=== PATIENT | female | born 1985 | race Asian ===

== ENCOUNTER → 2017-01-17 | Outpatient (CLI) | payer OTHER ==
[2017-01-17 09:26] LABS: IRON 114 ug/dL (50-170); TOTAL IRON BINDING CAPACITY 338 ug/dL (250-450)
[2017-01-17 09:34] LABS: BASOPHIL % 0.8 % (0-2); PLATELET COUNT 174 x10^3mcL (130-400); RED CELL DISTRIBUTION WIDTH 14.9 % (11.5-14.5)
[2017-01-17 09:36] LABS: T3 TOTAL 0.94 ng/mL
[2017-01-17 09:38] LABS: ALBUMIN 3.7 g/dL (3.4-5.0); ALKALINE PHOSPHATASE 31 U/L (46-116); ALT/SGPT 18 U/L (14-59); AST/SGOT 20 U/L (15-37); BILIRUBIN TOTAL 0.32 mg/dL (0.20-1.00); CALCIUM 8.5 mg/dL (8.5-10.1); CARBON DIOXIDE 28.7 mmol/L (21-32); CHLORIDE SERUM 104 mmol/L (98-107); FREE T4 0.95 ng/dL (0.76-1.46); FREE THYROXINE INDEX 2.8 ug/dL (1.4-4.5); GFR1 > 60 mL/min; GLUCOSE SERUM 100 mg/dL (74-106); POTASSIUM SERUM 3.8 mmol/L (3.5-5.1); SODIUM SERUM 138 mmol/L (136-145); TOTAL PROTEIN, SERUM 7.4 g/dL (6.4-8.2); TRIGLYCERIDES 78 mg/dL (<150)
[2017-01-17 09:48] LABS: CHOLESTEROL 236 mg/dL (<200); CHOLESTEROL/HDL RATIO 2.5; HDL CHOLESTEROL 95 mg/dL (40-60)
== END | disposition home or self-care (01) ==
LOC: LB 08:36
PROVIDERS: Family Medicine
DX: R10.11 Right upper quadrant pain (principal); R10.13 Epigastric pain
CPT/HCPCS: 84439

== ENCOUNTER 2017-01-22 06:57 | Emergency (ER) | payer OTHER ==
[~2017-01-22] VITALS: Ht 167.6 cm; Wt 67.1 kg
[2017-01-22 07:55] LABS: UA SPECIFIC GRAVITY 1.015 (1.005-1.035); microscopic required? YES; urine erythrocyte NEGATIVE (NEGATIVE)
[2017-01-22 08:06] LABS: BASOPHIL % 1.2 % (0-2); PLATELET COUNT 168 x10^3mcL (130-400)
[2017-01-22 08:07] LABS: RED CELL DISTRIBUTION WIDTH 14.8 % (11.5-14.5)
[2017-01-22 08:16] LABS: CALCIUM 8.5 mg/dL (8.5-10.1); CARBON DIOXIDE 28.7 mmol/L (21-32); CHLORIDE SERUM 106 mmol/L (98-107); CREATININE SERUM 0.9 mg/dL (0.6-1.0); GFR1 > 60 mL/min; GLUCOSE SERUM 95 mg/dL (74-106); POTASSIUM SERUM 4.1 mmol/L (3.5-5.1); SODIUM SERUM 140 mmol/L (136-145)
[2017-01-22 08:19] LABS: ALBUMIN 3.6 g/dL (3.4-5.0); ALKALINE PHOSPHATASE 34 U/L (46-116); ALT/SGPT 15 U/L (14-59); AMYLASE 35 U/L (25-115); AST/SGOT 15 U/L (15-37); BILIRUBIN TOTAL 0.18 mg/dL (0.20-1.00); LIPASE 110 IU/L (73-393); TOTAL PROTEIN, SERUM 7.2 g/dL (6.4-8.2)
[2017-01-22 10:02] VITALS: BP 102/63
== END 2017-01-22 10:02 | disposition home or self-care (01) ==
LOC: ED 06:57
PROVIDERS: Emergency Medicine
DX: K59.00 Constipation, unspecified (principal); R82.71 Bacteriuria; M43.16 Spondylolisthesis, lumbar region
CPT/HCPCS: 83880; J1885; J7030